=== PATIENT | male | born 1965 | race Caucasian/White ===

== ENCOUNTER 2018-04-16 09:01 | Day surgery (SDC) | payer BC ==
[~2018-04-16] VITALS: Ht 185.4 cm; Wt 102.5 kg
[~2018-04-16 09:01] MED LIST: MEN'S MULTI-VI1 EACH PO; OMEPRAZOLE40 M1 PO; VITAMIN B122500 MCG PO; VITAMIN D31000 UNIT PO
[2018-04-16 09:52] VITALS: BP 122/80
[2018-04-16] MEDS ORDERED: NORCO 5/3251 TABLET PO (13:13)
[2018-04-16 13:50] VITALS: BP 145/82
[2018-04-16 14:40] VITALS: BP 136/87
== END 2018-04-16 14:40 | disposition home or self-care (01) ==
LOC: SDC 09:01
PROC: 0WQF0ZZ Repair Abdominal Wall, Open Approach (ICD-10-PCS; principal; 2018-04-16)
DX: K42.9 Umbilical hernia without obstruction or gangrene (principal); K21.0 Gastro-esophageal reflux disease with esophagitis
CPT/HCPCS: C1781; J0131; J0690; J2250; J3010; S0020